=== PATIENT | male | born 1980 | race Caucasian/White ===

== ENCOUNTER 2017-01-16 16:41 | Emergency (ER) | payer OTHER, SELFPAY ==
[~2017-01-16] VITALS: Ht 175.3 cm; Wt 76.2 kg
[2017-01-16 16:41] VITALS: BP 146/71
[2017-01-16] MEDS ORDERED: ZANA4CAP PO (17:41)
[2017-01-16] MEDS ORDERED: IBUP600T26 PO (17:41)
[2017-01-16] MEDS ORDERED: tiZANidine 4 MG TAB PO ONE (17:45)
[2017-01-16] MEDS ORDERED: IBUPROFEN 600 MG TAB PO ONE (17:45)
== END 2017-01-16 17:50 | disposition home or self-care (01) ==
LOC: M ED 17:35
DX: M54.5 Low back pain (principal)

== ENCOUNTER 2017-07-24 14:08 | Emergency (ER) | payer OTHER, SELFPAY ==
[~2017-07-24] VITALS: Ht 175.3 cm; Wt 79.5 kg
[~2017-07-24 14:08] MED LIST: IBUP-1022 PO; ZANA4CAP PO
[2017-07-24] MEDS ORDERED: TETRACAINE 0.5% OPHTH SOLN 4ML OD ONE (15:30)
[2017-07-24] MEDS ORDERED: FLUORESCEIN OPHTH 1 MG STRIP OD ONE (15:30)
[2017-07-24] MEDS ORDERED: ERYTHROMYCIN OPHTH OINT OD ONE (17:30)
[2017-07-24 17:36] VITALS: BP 125/74
== END 2017-07-24 17:38 | disposition home or self-care (01) ==
LOC: M ED 14:08
DX: S05.01XA Injury of conjunctiva and corneal abrasion without foreign body, right eye, initial encounter (principal); X58.XXXA Exposure to other specified factors, initial encounter; Y92.9 Unspecified place or not applicable; Y93.9 Activity, unspecified; Y99.9 Unspecified external cause status